=== PATIENT | female | born 1985 | race Caucasian/White ===

== ENCOUNTER → 2023-02-05 12:31 | Outpatient (CLI) | payer OTHER, SELFPAY ==
--- NOTE | ~2023-02-05 | US_ITS ---
EXAMINATION: US transvaginal DATE: 02/05/2023 12:54 INDICATION: Menorrhagia. Check for polyps. Comparison:No prior studies for comparison. TECHNIQUE: Multiple endovaginal sonographic images of the pelvis performed. FINDINGS: The uterus measures 10.2 x 8 x 7.7 cm. There are uterine fibroids, largest measuring 5.4 cm . The endometrial complex measures 12 mm. The right ovary measures 2.4 x 1.5 x 1.9 cm and the left ovary is not visualized. Normal Doppler sign al in the right ovary. There is no free fluid in the pelvis. There are no abnormal masses seen on either side. IMPRESSION: 1. Enlarged fibroid uterus, largest fibroid measuring 5.4 cm. 2: Endometrial thickening measuring 12 mm. Reviewed, dictated and finalized at location L.
== END ==
PROVIDERS: PCP Obstetrics & Gynecology Gynecology; Visit Provider Obstetrics & Gynecology Gynecology
DX: N92.0 Excessive and frequent menstruation with regular cycle (principal); D25.9 Leiomyoma of uterus, unspecified
CPT/HCPCS: 76830

== ENCOUNTER → 2023-06-05 10:15 | Outpatient (CLI) | payer OTHER, SELFPAY ==
--- NOTE | ~2023-06-05 | XR_ITS ---
Right foot Technique: AP, oblique, and lateral views were obtained. Clinical History: Pain Findings: No acute fracture or dislocation is seen. Osseous alignment is anatomic. Joint spaces are p reserved without erosive or degenerative change. Prominent dorsal spur noted on the lateral view, whi ch appears to arise from the cuneiforms. Soft tissues are unremarkable. Impression: No fracture or dislocation. Prominent dorsal spur seen on lateral view, probably arising from one of the cuneiforms. Reviewed, dictated and finalized at location M. Impression: No fracture or dislocation. Prominent dorsal spur seen on lateral view, probably arising from one of the cu neiforms.
== END ==
PROVIDERS: PCP Nurse Practitioner Adult Health; Visit Provider Nurse Practitioner Adult Health
DX: M25.571 Pain in right ankle and joints of right foot (principal); M77.31 Calcaneal spur, right foot
CPT/HCPCS: 73630

== ENCOUNTER 2023-12-11 14:40 | Outpatient (CLI) | payer OTHER, SELFPAY ==
--- NOTE | ~2023-12-11 | MM_ITS ---
EXAMINATION: MM screening philipp BI w [facility] HISTORY: Screening mammogram TECHNIQUE: Craniocaudal and mediolateral oblique 3-D tomosynthesis images were obtained and synthetic 2-D images were generated. CAD analysis was submitted and interpreted. COMPARISON: No prior mammogram is available for comparison at this institution. BREAST PARENCHYMAL COMPOSITION: There are scattered areas of fibroglandular density. FINDINGS: There is an approximately 6 x 9 mm circumscribed opacity in the upper inner left breast. Di agnostic left mammogram and left breast ultrasound examination are recommended. Otherwise no suspicious mass, architectural distortion, malignant calcification, skin thickening or r etraction of either breast is evident.. IMPRESSION: 1. Upper inner quadrant left breast mass 2. Diagnostic left mammogram and left breast ultrasound examination are recommended BI-RADS Category 0: Incomplete: Needs additional imaging evaluation. Reviewed, dictated and finalized at location A. IMPRESSION: 1. Upper inner quadrant left breast mass 2. Diagnostic left mammogram and left breast ultrasound examination are recomme nded BI-RADS Category 0: Incomplete: Needs additional imaging evaluation.
== END 2023-12-11 14:41 ==
LOC: MICIMG 14:41
PROVIDERS: PCP Obstetrics & Gynecology Gynecology; Visit Provider Obstetrics & Gynecology Gynecology
DX: Z12.31 Encounter for screening mammogram for malignant neoplasm of breast (principal); R92.8 Other abnormal and inconclusive findings on diagnostic imaging of breast
CPT/HCPCS: 77063; 77067

== ENCOUNTER 2024-01-14 07:43 | Outpatient (CLI) | payer OTHER, SELFPAY ==
--- NOTE | ~2024-01-14 | MMUS_ITS ---
EXAMINATION: MM diagnostic philipp LT w [facility], US breast LT limited HISTORY: Upper inner quadrant left breast mass reported on 12/11/2023 screening mammogram TECHNIQUE: Additional 3-D tomosynthesis images of the left breast were performed and synthetic 2-D im ages were generated. CAD analysis was submitted and interpreted. High resolution upper inner quadrant left breast ultrasound was performed. COMPARISON: 12/11/2023 bilateral screening mammogram FINDINGS: MAMMOGRAPHIC FINDINGS: There is an approximately 4 x 8 mm opacity at mid depth the upper inner quadrant of the left breast. ULTRASOUND: 10:00 5 cm from nipple: Multi septated cyst measuring 4 x 6 x 8 mm approximately, without internal va scularity or posterior shadowing, probably benign IMPRESSION: 1. Probably benign multiseptated cyst at 10:00 5 cm from nipple 2. Recommend 6 month diagnostic left mammogram and left breast ultrasound follow-up BI-RADS category 3, probably benign findings. Reviewed, dictated and finalized at location A. IMPRESSION: 1. Probably benign multiseptated cyst at 10:00 5 cm from nipple 2. Recommend 6 month diagnostic left mammogram and left breast ultrasound follo w-up BI-RADS category 3, probably benign findings.
== END 2024-01-14 07:44 ==
PROVIDERS: PCP Obstetrics & Gynecology Gynecology; Visit Provider Obstetrics & Gynecology Gynecology
DX: R92.8 Other abnormal and inconclusive findings on diagnostic imaging of breast (principal)
CPT/HCPCS: 76642; 77061; 77065; G0279

== ENCOUNTER 2024-06-16 08:29 | Outpatient (CLI) | payer OTHER, SELFPAY ==
--- NOTE | ~2024-06-16 | MR_ITS ---
MR breast BI wo/w con 06/16/2024 11:03 CDT INDICATION: Follow-up left breast mass TECHNIQUE: MRI of the breasts perform using standard protocol pre-and post IV contrast with the follo wing sequences: Axial T2 STIR, axial T1, axial vibrant T1 with fat suppression precontrast and multip hasic postcontrast. 16 cc MultiHance administered intravenously. COMPARISON: Comparison to multiple prior studies sequentially, with oldest reviewed study dated 12/10. FINDINGS: There are no abnormalities on the precontrast sequences. There is minimal background parenc hymal enhancement. No enhancing lesions following contrast administration. No areas of enhancement meeting threshold criteria on CAD analysis. No evidence of signal abnormalities in the axillary or i nternal mammary node distributions. LEFT BREAST: Precontrast sequences demonstrate a T1 hypointense and T2 hyperintense 1.2 x 1.7 cm mass of the left breast in the upper central breast, middle third which does not enhance. This likely cor responds to the mammographic finding is likely benign. There is minimal background parenchymal enhanc ement. No enhancing lesions following contrast administration. No areas of enhancement meeting thr eshold criteria on CAD analysis. No evidence of signal abnormalities in the axillary or internal ma mmary node distributions.] IMPRESSION: 1: Right breast: Negative. No evidence of malignancy. BI-RADS category 1. Recommend annual mammo graphy follow-up. 2: Left breast: Probable benign left breast mass measuring 1.2 x 1.7 cm which is nonenhancing and li alec corresponds to prior finding by ultrasound and mammography. Six-month follow-up diagnostic left mammogram and ultrasound recommended. BI-RADS CATEGORY 3-PROBABLY BENIGN FINDING Reviewed, dictated and finalized at location B. IMPRESSION: 1: Right breast: Negative. No evidence of malignancy. BI-RADS category 1. Recommend annual mammography follow-up. 2: Left breast: Probable benign left breast mass measuring 1.2 x 1.7 cm which is nonenhancing and likely corresponds to prior finding by ultrasound and mammo graphy. Six-month follow-up diagnostic left mammogram and ultrasound recommende d. BI-RADS CATEGORY 3-PROBABLY BENIGN FINDING
== END 2024-06-16 08:30 | disposition home or self-care (01) ==
PROVIDERS: PCP Obstetrics & Gynecology Gynecology; Visit Provider Surgery
DX: Z12.31 Encounter for screening mammogram for malignant neoplasm of breast (principal); R92.8 Other abnormal and inconclusive findings on diagnostic imaging of breast; Z91.89 Other specified personal risk factors, not elsewhere classified
CPT/HCPCS: 77049; A9577; C8908